=== PATIENT | male | born 1980 | race Caucasian/White ===

== ENCOUNTER 2017-09-20 17:09 | Emergency (ER) | payer MEDICAID, OTHER ==
[~2017-09-20] VITALS: Ht 162.6 cm; Wt 66.0 kg
[2017-09-20] MEDS ORDERED: SODIUM CHLORIDE 0.9% 1,000 ML IV ONE (18:11)
[2017-09-20 18:38] LABS: BASOPHILS % 0.6 % (0.0-2.0); EOSINOPHILS % 2.4 % (0.0-5.0); HEMATOCRIT. 37.6 % (42.0-52.0); HEMOGLOBIN. 12.8 g/dL (14.0-18.0); LYMPHOCYTES % 26.8 % (20.0-50.0); MEAN CORPUSCULAR VOLUME 91.2 fL (80.0-94.0); MEAN PLATELET VOLUME 8.6 fl (7.4-10.4); MONOCYTES % 8.8 % (2.0-8.0); NEUTROPHILS % 61.4 % (40.0-76.0); PLATELET 143 x1000/uL (130-400); RED BLOOD CELL COUNT 4.12 mill/uL (4.7-6.1); RED CELL DISTRIBUTION WIDTH 14.9 % (11.6-14.6)
[2017-09-20 18:56] LABS: CARBON DIOXIDE 25 mEq/L (21-32); CHLORIDE 121 mEq/L (98-107); ETHANOL BLOOD < 10 mg/dL
[2017-09-20 18:59] LABS: CLARITY URINE CLEAR (CLEAR); COLOR URINE YELLOW (YELLOW); GLUCOSE URINE NEGATIVE (NEGATIVE); KETONES URINE NEGATIVE (NEGATIVE); LEUKOCYTE ESTERASE URINE NEGATIVE (NEGATIVE); NITRITE URINE NEGATIVE (NEGATIVE); OCCULT BLOOD URINE NEGATIVE (NEGATIVE); PROTEIN URINE NEGATIVE (NEGATIVE); SPECIFIC GRAVITY URINE 1.024 (1.005-1.030); UROBILINOGEN URINE 0.2 E.U./dL (0.2-1.0)
[2017-09-20 19:24] LABS: *AMPHETAMINES SCREEN URINE NEGATIVE (NEGATIVE); *BARBITURATES SCREEN URINE NEGATIVE (NEGATIVE); *BENZODIAZEPINES SCREEN URINE NEGATIVE (NEGATIVE); *COCAINE SCREEN URINE NEGATIVE (NEGATIVE); CANNABINOID URINE SCREEN NEGATIVE (NEGATIVE); METHADONE URINE SCREEN NEGATIVE (NEGATIVE); OPIATES URINE SCREEN NEGATIVE (NEGATIVE); PHENCYCLIDINE URINE SCREEN NEGATIVE (NEGATIVE)
[2017-09-20] MEDS ORDERED: OLANZAPINE 10 MG/VIAL IM ONE (21:45)
[2017-09-21] MEDS ORDERED: OLANZAPINE 10 MG/VIAL IM ONE (07:45)
[2017-09-21] MEDS ORDERED: ZIPRASIDONE MESYLATE 20MG/VIAL IM ONE (17:45)
[2017-09-22] MEDS ORDERED: LORAZEPAM 1MG TABLET PO ONE (17:00)
[2017-09-22] MEDS ORDERED: ZIPRASIDONE HCL 20MG CAPSULE PO ONE (17:00)
[2017-09-22 17:15] VITALS: BP 122/62
== END 2017-09-22 17:19 ==
LOC: EDBD 19:30 → ER 19:30
DX: F23 Brief psychotic disorder (principal); R45.851 Suicidal ideations; R32 Unspecified urinary incontinence
CPT/HCPCS: 36415; 80053; 80305; 81003; 85025; 96360; 96372; 99285; G0482; J3486; J3490; Z7610; J7030